=== PATIENT | male | born 1980 ===

== ENCOUNTER 2018-01-15 19:34 | Emergency (ER) | payer OTHER ==
[~2018-01-15] VITALS: Ht 160 cm; Wt 70.7 kg
[2018-01-15 19:48] VITALS: BP 159/105; TEMP 98.5
[2018-01-15 21:27] VITALS: PULSE 64
== END 2018-01-15 21:26 | disposition home or self-care (01) ==
LOC: COL.ER 19:34
DX: S62.655A Nondisplaced fracture of middle phalanx of left ring finger, initial encounter for closed fracture (principal); F17.210 Nicotine dependence, cigarettes, uncomplicated; W10.9XXA Fall (on) (from) unspecified stairs and steps, initial encounter; Y92.009 Unspecified place in unspecified non-institutional (private) residence as the place of occurrence of the external cause
CPT/HCPCS: Q4021

== ENCOUNTER 2018-04-11 20:46 | Emergency (ER) | payer OTHER ==
[~2018-04-11] VITALS: Ht 160 cm; Wt 75.0 kg
[2018-04-11 20:51] VITALS: BP 141/105
[2018-04-11 22:15] VITALS: PULSE 120; TEMP 97.7
== END 2018-04-11 22:20 | disposition home or self-care (01) ==
LOC: COL.ER 20:46
DX: J10.1 Influenza due to other identified influenza virus with other respiratory manifestations (principal)

== ENCOUNTER 2020-10-28 16:53 | Emergency (ER) | payer OTHER ==
[~2020-10-28] VITALS: Ht 160 cm; Wt 72.7 kg
[2020-10-28 17:09] VITALS: TEMP 99.4
[2020-10-28] MEDS ORDERED: DOXYCYCLINE 10100 MG PO (19:14)
[2020-10-28 19:30] VITALS: BP 121/69; PULSE 86
== END 2020-10-28 19:30 | disposition home or self-care (01) ==
LOC: COL.ER 16:53
DX: T63.301A Toxic effect of unspecified spider venom, accidental (unintentional), initial encounter (principal)

== ENCOUNTER 2020-10-31 18:11 | Inpatient (IN) | payer OTHER ==
[~2020-10-31] VITALS: Ht 160 cm; Wt 72.7 kg
[~2020-10-31 18:11] MED LIST: DOXYCYCLINE 10100 MG PO
[2020-10-31 19:18] LABS: BASO % 0.3 % (0.0-2.0); EOS # 0.4 (0.0-0.7); EOS % 4.4 % (0-4.0); GRAN # 7.1 (1.4-6.5); GRAN % 72.2 % (42.2-75.2); HEMATOCRIT 43.2 % (42.0-52.0); HEMOGLOBIN 13.8 g/dl (13.5-18.0); LYMPH # 1.7 (1.2-3.4); LYMPH % 16.8 % (20.0-51.0); MEAN CELL VOLUME 85 fl (80.0-100.0); MEAN CORPUSCULAR HEMOGLOBIN 27 pg (27.0-31.0); MEAN CORPUSCULAR HGB CONC 32 g/dl (33.0-37.0); MONO # 0.6 (0.1-0.6); MONO % 6.1 % (1.7-9.3); PLATELET COUNT 460 K/mm3 (130-400); RED BLOOD COUNT 5.09 M/mm3 (4.20-5.60); REDCELL DISTRIBUTION WIDTH-CV 14.2 % (11.5-14.5)
[2020-10-31 19:22] LABS: PH 5 (5-8); SQUAMOUS EPITHELIAL None Seen /hpf; URINE APPEARANCE Clear; URINE BACTERIA None Seen /hpf; URINE BILIRUBIN Negative (NEGATIVE); URINE BLOOD Negative (NEGATIVE); URINE COLOR Yellow; URINE GLUCOSE Negative (NEGATIVE); URINE KETONE Negative (NEGATIVE); URINE LEUKOCYTE ESTERASE Negative (NEGATIVE); URINE NITRATE Negative (NEGATIVE); URINE PROTEIN(semi-quant) Negative (NEGATIVE); URINE RBC 0-2 /hpf; URINE UROBILINOGEN Negative (NEGATIVE); URINE WBC 0-2 /hpf
[2020-10-31 19:39] LABS: ALBUMIN 4.5 gm/dL (3.5-5.0); BILIRUBIN,TOTAL 0.4 mg/dL (0.0-1.0); C-REACTIVE PROTEIN 2.6 mg/dL (0.0-0.9); CALCIUM 9.6 mg/dL (8.4-10.2); CREATININE, serum 1.32 (0.66-1.25); POTASSIUM 4.1 mmol/L (3.4-5.0); TOTAL PROTEIN 8.5 gm/dL (6.4-8.2)
[2020-10-31 19:39] LABS: COLLECTION METHOD CLEAN CATCH
[2020-10-31 20:26] LABS: INR 1.3 (0.8-3.0); PROTHROMBIN TIME 14.6 SECONDS (9.7-12.8)
[2020-10-31 22:45] VITALS: BP 149/99; PULSE 71; TEMP 98.4
--- NOTE | 2020-10-31 23:02 | NUR ---
Vancomycin Initial Dosing Pharmacy Note Ordering provider: Juan Lubin MD Indication/duration: SSTI (Suspected spider/insect bite) 7 days Relevant comorbidities: NA LABS: WBC = 9.8, SCr = 1.32 Recommendation: Will draw troughs and follow levels. Loading dose: 1 gram Maintenance dose: 1 gram every 12 hours Trough goal: 10-15 ug/mL
--- NOTE | 2020-11-01 00:28 | NUR ---
Patient is a newly admit complaining of spider bites in his LLE. Its red around the area, granulated and purple color the wound itself. He denies pain or SOB. He asked for sleeping pills and that was given.He speak japanese with little Italian. Otherwise he is alert and oriented no complains. Call light was given and within reach. Continue to monitor.
[2020-11-01 04:55] VITALS: BP 144/79; PULSE 71; TEMP 98
--- NOTE | 2020-11-01 06:19 | NUR ---
Dr Morris notified for consult at 0619am.
[2020-11-01 07:51] LABS: CALCIUM 8.4 mg/dL (8.4-10.2); CREATININE, serum 1.1 (0.66-1.25); POTASSIUM 3.8 mmol/L (3.4-5.0)
[2020-11-01 07:54] LABS: BASO % 0.3 % (0.0-2.0); EOS # 0.6 (0.0-0.7); EOS % 5.2 % (0-4.0); GRAN # 7.7 (1.4-6.5); HEMATOCRIT 37.5 % (42.0-52.0); LYMPH # 2.4 (1.2-3.4); LYMPH % 20.5 % (20.0-51.0); MEAN CELL VOLUME 85 fl (80.0-100.0); MEAN CORPUSCULAR HEMOGLOBIN 27 pg (27.0-31.0); MEAN CORPUSCULAR HGB CONC 32 g/dl (33.0-37.0); MEAN PLATELET VOLUME 9.3 fl (7.4-10.4); MONO # 0.8 (0.1-0.6); MONO % 6.7 % (1.7-9.3); PLATELET COUNT 422 K/mm3 (130-400); RED BLOOD COUNT 4.43 M/mm3 (4.20-5.60); REDCELL DISTRIBUTION WIDTH-CV 14.3 % (11.5-14.5)
[2020-11-01 07:59] VITALS: BP 111/68; PULSE 57; TEMP 98
--- NOTE | 2020-11-01 09:01 | NUR ---
Patient sitting on bench in room, listening to music. Patient is indian speaking, so there is a language barrier. This RN has been recieving help with translation from another RN who is indian speaking. Patient has no complaints at this time, and that his leg is not hurting as bad.
[2020-11-01 11:45] VITALS: BP 129/78; PULSE 66; TEMP 98.2
--- NOTE | 2020-11-01 15:01 | NUR ---
HERMILO met with patient and spouse in room with nurse to translate. Patient reports that he had insurance but does not like going to . Patient is educated n preventative care. Sw offered supports to through case management. Patient to ri. No concerns indentified other than follow-up.
== END 2020-11-01 15:35 | disposition home or self-care (01) | DRG 603 ==
LOC: COL.ER 18:11 → MEDICAL 20:07
PROVIDERS: Nurse Practitioner Primary Care; Student in an Organized Health Care Education/Training Program; ADMIT Internal Medicine
DX: L03.116 Cellulitis of left lower limb (principal); N17.9 Acute kidney failure, unspecified; T63.331A Toxic effect of venom of brown recluse spider, accidental (unintentional), initial encounter; R74.01 Elevation of levels of liver transaminase levels; I10 Essential (primary) hypertension; Z20.822 Contact with and (suspected) exposure to COVID-19
CPT/HCPCS: 99223-AI; 99238; J0696; J1644; J2543; J3370; J7030; J7050

== ENCOUNTER 2024-01-23 14:41 | Emergency (ER) | payer MEDICAID ==
[~2024-01-23] VITALS: Ht 157.5 cm; Wt 84.1 kg
[~2024-01-23 14:41] MED LIST changes: +ZESTRIL 5MG5 MG PO
[2024-01-23 15:02] VITALS: TEMP 98.4
[2024-01-23] MEDS ORDERED: Ketorolac 15 MG/ML VIAL IV ONE (17:00)
[2024-01-23] MEDS ORDERED: NS 1,000 ML IV ONE (17:00)
[2024-01-23] MEDS ORDERED: diphenhydrAMINE 50 MG/ML 1 ML VIAL IV ONE (17:00)
[2024-01-23 17:02] LABS: COLLECTION METHOD CLEAN CATCH
[2024-01-23 17:05] LABS: BASO % 0.2 % (0.0-2.0); EOS # 0.1 K/mm3 (0.0-0.7); EOS % 1.5 % (0.0-4.0); GRAN # 7.5 K/mm3 (1.4-6.5); GRAN % 78.3 % (42.2-75.2); HEMATOCRIT 44.9 % (42.0-52.0); HEMOGLOBIN 14.7 g/dl (13.5-18.0); LYMPH # 1.5 K/mm3 (1.2-3.4); LYMPH % 15.3 % (20.0-51.0); MEAN CELL VOLUME 88 fl (80.0-100.0); MEAN CORPUSCULAR HEMOGLOBIN 29 pg (27-31); MEAN CORPUSCULAR HGB CONC 33 g/dl (33.0-37.0); MEAN PLATELET VOLUME 9.2 fl (7.4-10.4); MONO # 0.4 K/mm3 (0.1-0.6); MONO % 4.6 % (1.7-9.3); PLATELET COUNT 394 K/mm3 (130-400); RED BLOOD COUNT 5.13 M/mm3 (4.20-5.60); REDCELL DISTRIBUTION WIDTH-CV 13.9 % (11.5-14.5)
[2024-01-23 17:09] LABS: PH 7.5 (5.0-8.5); URINE APPEARANCE CLEAR (CLEAR/HAZY); URINE BLOOD NEGATIVE (NEGATIVE); URINE COLOR YELLOW (YELLOW); URINE GLUCOSE NEGATIVE (NEGATIVE); URINE KETONE NEGATIVE (NEGATIVE); URINE NITRATE NEGATIVE (NEGATIVE); URINE PROTEIN(semi-quant) TRACE (NEGATIVE); URINE UROBILINOGEN 0.2 E.U/dL (0.2-1.0)
[2024-01-23 17:24] LABS: ALBUMIN 4.4 g/dL (3.5-5.0); BILIRUBIN,TOTAL 0.5 mg/dL (0.2-1.2); CREATININE, serum 0.94 mg/dL (0.72-1.25); POTASSIUM 4.1 mEq/L (3.5-4.5); TOTAL PROTEIN 7.8 g/dl (6.2-8.1)
[2024-01-23 19:33] VITALS: BP 174/116; PULSE 81
== END 2024-01-23 19:33 | disposition home or self-care (01) ==
LOC: COL.ER 14:41
PROVIDERS: Physician Assistant
DX: F20.9 Schizophrenia, unspecified (principal); G47.00 Insomnia, unspecified
CPT/HCPCS: J0780; J1200; J1885; J7030